=== PATIENT | female | born 1990 | race Caucasian/White ===

== ENCOUNTER → 2018-11-04 10:24 | Outpatient (CLI) | payer OTHER, SELFPAY ==
[2018-11-04 12:16] LABS: Hemoglobin 13.4 g/dl (12.0-15.0); Mean Corp Hgb Conc 31.9 g/gl (32-36); Mean Corpuscular Hgb 30.9 pg (27.0-32.0); Mean Platelet Vol. 11.6 fl (6.2-12.0); Platelet Count 167 K/mm3 (150-450); RBC Distribution Width CV 13.3 % (11.6-14.6); RBC Distribution Width SD 46.3 fl (35.1-43.9); Red Blood Count 4.33 M/mm3 (4.2-5.4); White Blood Count 4.5 K/mm3 (4.4-11.0)
[2018-11-04 12:20] LABS: Scan Indicated on CBC? Y/N NO
[2018-11-04 12:40] LABS: Ferritin 12 ng/mL (8-252); Free T3 2.7 pg/mL (2.18-3.98); Iron 83 ug/dL (50-170); Iron Binding Capacity,Total 444 ug/dL (250-450); T4 Free Direct 0.96 ng/dL (0.76-1.46); Thyroid Stim Hormone (TSH) 2.34 uIU/mL (0.358-3.74)
== END ==
PROVIDERS: Visit Provider Obstetrics & Gynecology
DX: N92.1 Excessive and frequent menstruation with irregular cycle (principal)
CPT/HCPCS: 36415; 82728; 83540; 83550; 84439; 84443; 84481; 85027

== ENCOUNTER → 2019-12-30 | Outpatient (CLI) | payer OTHER, SELFPAY ==
[2020-01-02 19:48] LABS: HPV Reflexed? NOT INDICATED
== END | disposition home or self-care (01) ==
LOC: LABSPEC 13:45
PROVIDERS: Visit Provider Obstetrics & Gynecology
DX: Z12.4 Encounter for screening for malignant neoplasm of cervix (principal)
CPT/HCPCS: 88175; G0145

== ENCOUNTER → 2023-01-29 | Outpatient (CLI) | payer OTHER, SELFPAY ==
[2023-02-01 13:07] LABS: HPV APTIMA, High Risk Negative (Negative)
== END | disposition home or self-care (01) ==
LOC: LABSPEC 16:44
PROVIDERS: Visit Provider Student in an Organized Health Care Education/Training Program
DX: Z12.4 Encounter for screening for malignant neoplasm of cervix (principal)
CPT/HCPCS: 87624; 88175; G0145

== ENCOUNTER 2024-08-18 15:48 | Outpatient (RCR) | payer SELFPAY | END 2024-08-19 23:59 | LOC: NS 15:48 | DX: Z71.3 Dietary counseling and surveillance (principal); E78.5 Hyperlipidemia, unspecified; E66.9 Obesity, unspecified; Z68.30 Body mass index [BMI] 30.0-30.9, adult | CPT/HCPCS: 97802 ==

== ENCOUNTER 2024-09-08 15:47 | Outpatient (RCR) | payer SELFPAY | END 2024-09-19 23:59 | LOC: NS 15:47 | DX: Z71.3 Dietary counseling and surveillance (principal); E78.5 Hyperlipidemia, unspecified; E66.9 Obesity, unspecified; Z68.30 Body mass index [BMI] 30.0-30.9, adult | CPT/HCPCS: 97803 ==

== ENCOUNTER 2024-09-29 16:32 | Outpatient (RCR) | payer OTHER, SELFPAY | END 2024-10-17 23:59 | LOC: NS 16:32 | DX: Z71.3 Dietary counseling and surveillance (principal); E66.9 Obesity, unspecified; E78.5 Hyperlipidemia, unspecified; Z68.30 Body mass index [BMI] 30.0-30.9, adult | CPT/HCPCS: 97803 ==

== ENCOUNTER 2024-10-27 14:54 | Outpatient (RCR) | payer SELFPAY | END 2024-11-17 23:59 | LOC: NS 14:54 | DX: E78.5 Hyperlipidemia, unspecified (principal); E66.9 Obesity, unspecified; Z68.30 Body mass index [BMI] 30.0-30.9, adult; Z71.3 Dietary counseling and surveillance | CPT/HCPCS: 97803 ==

== ENCOUNTER 2024-11-18 15:13 | Outpatient (RCR) | payer SELFPAY | END 2024-12-17 23:59 | LOC: NS 15:13 | DX: E78.5 Hyperlipidemia, unspecified (principal); E66.9 Obesity, unspecified; Z68.30 Body mass index [BMI] 30.0-30.9, adult; Z71.3 Dietary counseling and surveillance | CPT/HCPCS: 97803 ==

== ENCOUNTER 2024-12-29 16:00 | Outpatient (RCR) | payer SELFPAY | END 2025-01-17 23:59 | LOC: NS 16:00 | DX: Z71.3 Dietary counseling and surveillance (principal); E78.5 Hyperlipidemia, unspecified; E66.9 Obesity, unspecified; Z68.30 Body mass index [BMI] 30.0-30.9, adult | CPT/HCPCS: 97803 ==

== ENCOUNTER 2025-02-05 09:01 | Outpatient (RCR) | payer SELFPAY | END 2025-02-16 23:59 | LOC: NS 09:01 | DX: Z71.3 Dietary counseling and surveillance (principal); E78.5 Hyperlipidemia, unspecified | CPT/HCPCS: 97803 ==